=== PATIENT | female | born 1945 | race Caucasian/White ===

== ENCOUNTER 2017-02-27 12:01 | Emergency (ER) | payer BC, OTHER ==
[~2017-02-27] VITALS: Ht 167.6 cm; Wt 86.0 kg
[2017-02-27 12:22] VITALS: Ht 167.6 cm; Wt 86.0 kg
[2017-02-27] MEDS ORDERED: ACET500C5 PO (13:11)
[2017-02-27] MEDS ORDERED: CYCL-319 PO (13:11)
--- NOTE | 2017-02-27 15:29 | ERD ---
ER Documentation Chief Complaint Date/Time DATE: 02/27/17 TIME: 15:21 Chief Complaint left shoulder/arm pain x 4 days; pt has lifting objects HPI 71-year-old female complaining of pain behind her left shoulder 4 days. Patient stated that the day before also the pain, she left 20 pound bag of dog food. She thinks that it may have caused injury. Pain is sharp, behind her left shoulder blade. Patient has history of breast cancer, had mastectomy in August 2015. She is still followed up by both her PCP and her oncologist. Last oncology visit was 2 months ago. Denies shortness of breath. Denies cough. Denies fever or chills. ROS All systems reviewed and are negative except as per history of present illness. Medications Home Meds Active Scripts Cyclobenzaprine Hcl* (Cyclobenzaprine Hcl*) 10 Mg Tablet, 10 MG PO TID, #15 TAB Prov:RUSTY ESPINO. [employer] 02/27/17 Acetaminophen* (Tylophen*) 500 Mg Capsule, 1 CAP PO Q6H Y for PAIN AND OR ELEVATED TEMP, #20 CAP Prov:RUSTY ESPINO. [employer] 02/27/17 Allergies Allergies: Coded Allergies: neomycin (Verified Allergy, Unknown, RASH, 02/27/17) PMhx/Soc History of Surgery: Yes (LEFT MASTECTOMY ) Anesthesia Reaction: No Hx Neurological Disorder: No Hx Respiratory Disorders: No Hx Cardiac Disorders: Yes (HTN ) Hx Psychiatric Problems: No Hx Miscellaneous Medical Probl: Yes (DM) Hx Alcohol Use: Yes Hx Substance Use: No Hx Tobacco Use: No Smoking Status: Never smoker Physical Exam Vitals Vital Signs Date Time Temp Pulse Resp B/P Pulse Ox O2 Delivery O2 Flow Rate FiO2 02/27/17 12:22 99.0 88 16 159/90 97 Physical Exam General: Well-developed, well-nourished, conscious and coherent, in no distress Skin: Warm and dry without rash, good texture and turgor Head: Normocephalic without evidence of trauma Eyes: Sclera and conjunctivae normal; pupils equal, round, and reactive to light; extraocular movements are intact Neck: Supple without meningismus or adenopathy. Carotids are equal. Trachea midline. No bruits or JVD Chest: Normal AP diameter. Good expansion without retractions. Nontender. Lungs are clear to auscultate bilaterally with good tidal volume Heart: Regular rate and rhythm. No murmur, rub, or gallops heard Back: Without spinal or CVA tenderness. Muscle spasm noted in the left upper back. Extremities: Full range of motion. Good strength bilaterally. No clubbing, cyanosis, or edema. Peripheral pulses are intact. Sensation intact Neuro: Alert and oriented 4, GCS 15. Cranial nerves grossly intact. Motor and sensory exams nonfocal. Moves all extremities. Speech clear. Gait normal Procedures/MDM Well-appearing 71-year-old female presented ED was muscle spasm on her left upper back. Patient does not have any spinal tenderness. The spinal fracture, this subluxation, or spinal epidural abscess. She does not have any tenderness in her shoulder joint, able to move her left extremity without difficulty. I doubt left shoulder joint fracture, dislocation, or bursitis. Patient appears well, stable for discharge and outpatient management. Medical decision making shared with patient and family. Education provided to patient and family. Patient and family expressed understanding of the plan. Medications on discharge: Ibuprofen, Flexeril. Follow-up: Primary care provider in 2-3 days or return to ED if worse. Departure Diagnosis: Primary Impression: Back spasm Condition: Good Patient Instructions: Back Spasm, No Trauma Referrals: [facility] YOU HAVE RECEIVED A MEDICAL SCREENING EXAM AND THE RESULTS INDICATE THAT YOU DO NOT HAVE A CONDITION THAT REQUIRES URGENT TREATMENT IN THE EMERGENCY DEPARTMENT. FURTHER EVALUATION AND TREATMENT OF YOUR CONDITION CAN WAIT UNTIL YOU ARE SEEN IN YOUR DOCTORS OFFICE WITHIN THE NEXT 1-2 DAYS. IT IS YOUR RESPONSIBILITY TO MAKE AN APPOINTMENT FOR FOLOW-UP CARE. IF YOU HAVE A PRIMARY DOCTOR --you should call your primary doctor and schedule an appointment IF YOU DO NOT HAVE A PRIMARY DOCTOR YOU CAN CALL OUR PHYSICIAN REFERRAL HOTLINE AT IF YOU CAN NOT AFFORD TO SEE A PHYSICIAN YOU CAN CHOSE FROM THE FOLLOWING [facility] [address] [facility] [address] [facility] [facility] [address] [facility] [address] [facility] [address]. [facility]. [address] Additional Instructions: Call your primary care doctor TOMORROW for an appointment during the next 2-3 days.See the doctor sooner or return here if your condition worsens before your appointment time. RUSTY ESPINO NP Feb 27, 2017 15:29
== END 2017-02-27 14:16 | disposition home or self-care (01) ==
LOC: FTE 12:01
DX: M62.830 Muscle spasm of back (principal); I10 Essential (primary) hypertension; E11.9 Type 2 diabetes mellitus without complications; Z85.3 Personal history of malignant neoplasm of breast
CPT/HCPCS: 99283